=== PATIENT | male | born 1990 | race Caucasian/White ===

== ENCOUNTER 2020-01-26 19:00 | Emergency (ER) | payer BC ==
--- NOTE | 2020-01-26 19:07 | EDM.PDOC ---
ED HPI GENERAL MEDICAL PROBLEM - General Chief Complaint: ENT Problem Stated Complaint: SORE THROAT Time Seen by Provider: 01/26/20 19:14 Source of Information: Reports: Patient, Family History Limitations: Reports: No Limitations - History of Present Illness INITIAL COMMENTS - FREE TEXT/NARRATIVE: Continuing pharyngitis. Seen at the [facility] via telemedicine with throat swab for strep as well as COVID 19 both returning negative, 24 January 2020. No noted COVID exposure/risk prior to or since testing. Pharyngitis has been roughly 1 week since original onset. Now has developed predominantly right side as well as right-sided ear pain. Was noted to be swimming a week ago which may lead to the issue with his right ear pain. 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 Throat Pain Score (Numeric/FACES): 6 Right Ear Pain Score (Numeric/FACES): 6 - Related Data Allergies Allergy/AdvReac Type Severity Reaction Status Date / Time No Known Allergies Allergy Verified 01/26/20 19:45 Home Meds: Home Meds Cefdinir 300 mg PO BID 10 Days #20 capsule 01/26/20 [Rx] Hydrocort/Neomycin/Polymyxin B [Rmakwxsp-Jxzvwjeth-FP Otic Susp] 10 ml .XX TID 7 Days #1 bottle 01/26/20 [Rx] Past Medical History Musculoskeletal History: Reports: Fracture (Comminuted right patella, 2019) - Past Imaging History Past Imaging History: Reports: Xray Social & Family History - Family History Family Medical History: Noncontributory ED ROS GENERAL - Review of Systems Review Of Systems: Comprehensive ROS is negative, except as noted in HPI. ED EXAM, GENERAL - Physical Exam Exam: See Below Free Text/Narrative:: Alert oriented in no acute distress. HEENT shows a erythematous right auditory canal and tympanic membrane with mild cerumen in the canal nonobstructive. Left is noninvolved. PERRLA no icterus no injection. Speaks with hot potato voice. Tenderness to the neck and throat when opening the mouth. Oropharynx shows erythema with tonsillar enlargement, tonsillar stones bilateral. Uvula is midline with patent airway. Tenderness to the right anterior lateral neck consistent with lymph and tonsillar structure. No tenderness to the cervical spine nor rigidity is appreciated. Thorax is clear no wheezes no crackles. Cardiac is regular no appreciated murmur. Bowel sounds present no abdominal tenderness. Able to move extremities with no distress. Course - Vital Signs Last Recorded V/S: Last Vital Signs Temp 37.6 C 01/26/20 19:39 Pulse 90 01/26/20 19:39 Resp 20 01/26/20 19:39 BP 150/90 H 01/26/20 19:39 Pulse Ox 96 01/26/20 19:39 - Orders/Labs/Meds Orders: Active Orders 24 hr Category Date Time Status CULTURE STREP A CONFIRMATION [] Stat Lab 01/26/20 19:26 Results STREP SCRN A RAPID W CULT CONF [] Stat Lab 01/26/20 19:26 Results Labs: Laboratory Tests 01/26/20 Range/Units 19:28 WBC 12.42 H (5.00-10.00) 10^3/uL RBC 5.27 (4.50-6.00) 10^6/uL Hgb 15.5 (13.0-17.0) g/dL Hct 45.8 (40.0-52.0) % MCV 86.9 (82.0-92.0) fL MCH 29.4 (27.0-31.0) pg MCHC 33.8 (32.0-36.0) g/dL RDW 12.3 (11.5-14.5) % Plt Count 181 (150-400) 10^3/uL MPV 10.2 (7.4-10.4) fL Immature Gran % (Auto) 0.2 (0.0-5.0) % Neut % (Auto) 78.7 H (50.0-70.0) % Lymph % (Auto) 9.8 L (20.0-40.0) % [place] % (Auto) 11.0 H (2.0-8.0) % Eos % (Auto) 0.2 L (1.0-3.0) % Baso % (Auto) 0.1 (0.0-1.0) % Neut # (Auto) 9.77 H (2.50-7.00) 10^3/uL Lymph # (Auto) 1.22 (1.00-4.00) 10^3/uL [place] # (Auto) 1.37 H (0.10-0.80) 10^3/uL Eos # (Auto) 0.03 L (0.10-0.30) 10^3/uL Baso # (Auto) 0.01 (0.00-0.10) 10^3/uL Immature Gran # (Auto) 0.02 (0.00-0.50) 10^3/uL Meds: Medications Discontinued Medications Generic Name Dose Route Start Last Admin Trade Name Ivonne PRN Reason Stop Dose Admin Ceftriaxone Sodium 2 gm 01/26/20 19:59 01/26/20 20:18 Rocephin IVPUSH 01/26/20 20:00 2 gm ONETIME ONE Administration Ibuprofen 800 mg 01/26/20 20:27 Motrin PO 01/26/20 20:28 ONETIME ONE Lidocaine HCl 15 ml 01/26/20 19:38 01/26/20 19:53 Xylocaine 2% Viscous PO 01/26/20 19:39 15 ml ONETIME ONE Administration Lidocaine HCl Confirm 01/26/20 19:38 01/26/20 19:55 Xylocaine 2% Viscous Administered 01/26/20 19:39 Not Given Dose 15 ml .ROUTE .STK-MED ONE Methylprednisolone Sodium Succinate 125 mg 01/26/20 20:16 Solu-Medrol IVPUSH 01/26/20 20:17 ONETIME ONE Departure - Departure Time of Disposition: 20:33 Disposition: Home, Self-Care 01 Condition: Good Clinical Impression: Pharyngitis, Right acute otitis media, Tonsil stone, Otitis externa, Leukocytosis - Discharge Information *PRESCRIPTION DRUG MONITORING PROGRAM REVIEWED*: Not Applicable *COPY OF PRESCRIPTION DRUG MONITORING REPORT IN PATIENT NOMAN: Not Applicable Prescriptions: Cefdinir 300 mg PO BID 10 Days #20 capsule Hydrocort/Neomycin/Polymyxin B [Mplivimz-Nwplheppo-WO Otic Susp] 10 ml .XX TID 7 Days #1 bottle Referrals: 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 You will have prescriptions at [facility] pharmacy to pecan picker tomorrow, cefdinir 300 mg 1 capsule twice daily for the next 10 days, And ear drop Cortisporin otic to be used 3 times daily for 7 days, until ear pain resolves Your throat swab will be cultured and will be called to you if it results in positive findings that are not controlled with the current antibiotic regimen. Continue with salt water gargles to help reduce the exudate on your tonsils. Ibuprofen and Tylenol for discomfort. You need to be rechecked at your clinic on Wednesday, 28 January, or Wednesday morning, 29 January prior to returning to work. Sepsis Event Note (ED) - Focused Exam Vital Signs: Vital Signs Temp Pulse Resp BP Pulse Ox 01/26/20 19:39 37.6 C 90 20 150/90 H 96 - Problem List & Annotations (1) Right acute otitis media SNOMED Code(s): 504916811 Code(s): H66.91 - OTITIS MEDIA, UNSPECIFIED, RIGHT EAR Status: Acute Priority: High Current Visit: Yes (2) Pharyngitis SNOMED Code(s): 170494593 Code(s): J02.9 - ACUTE PHARYNGITIS, UNSPECIFIED Status: Acute Priority: High Current Visit: Yes Qualifiers: Pharyngitis/tonsillitis etiology: unspecified etiology Qualified Code(s): J02.9 - Acute pharyngitis, unspecified (3) Tonsil stone SNOMED Code(s): 5201366 Code(s): J35.8 - OTHER CHRONIC DISEASES OF TONSILS AND ADENOIDS Status: Chronic Priority: Medium Current Visit: Yes (4) Leukocytosis SNOMED Code(s): 646954464, 130063715 Code(s): D72.829 - ELEVATED WHITE BLOOD CELL COUNT, UNSPECIFIED Status: Acute Priority: High Current Visit: Yes (5) Otitis externa SNOMED Code(s): 9376125 Code(s): H60.90 - UNSPECIFIED OTITIS EXTERNA, UNSPECIFIED EAR Status: Acute Current Visit: Yes Qualifiers: Otitis externa type: swimmer's ear Chronicity: acute Laterality: right Qualified Code(s): H60.331 - Swimmer's ear, right ear - Problem List Review Problem List Initiated/Reviewed/Updated: Yes - My Orders Last 24 Hours: My Active Orders 01/26/20 19:26 CULTURE STREP A CONFIRMATION [RM] Stat STREP SCRN A RAPID W CULT CONF [RM] Stat - Assessment/Plan Last 24 Hours: My Active Orders 01/26/20 19:26 CULTURE STREP A CONFIRMATION [RM] Stat STREP SCRN A RAPID W CULT CONF [RM] Stat Plan: You have been given first dose of IV antibiotics here tonight. You will have prescriptions at [facility] pharmacy to pecan picker tomorrow, cefdinir 300 mg 1 capsule twice daily for the next 10 days, And ear drop Cortisporin otic to be used 3 times daily for 7 days, until ear pain resolves Your throat swab will be cultured and will be called to you if it results in positive findings that are not controlled with the current antibiotic regimen. Continue with salt water gargles to help reduce the exudate on your tonsils. Ibuprofen and Tylenol for discomfort. You need to be rechecked at your clinic on Wednesday, 28 January, or Wednesday, 29 January prior to returning to work.
[2020-01-26] MEDS: Lidocaine 2% Viscous Solution 15 ML Cup PO ONE (19:53)
[2020-01-26] MEDS: Lidocaine 2% Viscous Solution 15 ML Cup ONE (19:55)
[2020-01-26] MEDS: cefTRIAXone 2 GM Vial IVPUSH ONE (20:18)
[2020-01-26] MEDS: methylPREDNISolone Sodium Succinate 125 MG/2 ML SDV IVPUSH ONE (20:28)
[2020-01-26] MEDS: Ibuprofen 400 MG Tab PO ONE (20:42)
[2020-01-26] MEDS: Ibuprofen 400 MG Tab ONE (21:07)
[2020-01-26] MEDS: Ibuprofen 600 MG Tab PO ONE (21:07)
== END 2020-01-26 20:45 | disposition home or self-care (01) ==
LOC: KA.ED 19:00
DX: J02.9 Acute pharyngitis, unspecified (principal); H66.91 Otitis media, unspecified, right ear; H60.91 Unspecified otitis externa, right ear; J35.8 Other chronic diseases of tonsils and adenoids; D72.829 Elevated white blood cell count, unspecified; H61.21 Impacted cerumen, right ear
CPT/HCPCS: 36415; 85025; 87081; 87430; 96374; 96375; 99283; 99283-25; A9270-GY; J0696; J2930